=== PATIENT | female | born 1960 | race Caucasian/White ===

== ENCOUNTER → 2018-11-20 | Outpatient (CLI) | payer BC ==
[~2018-11-20] MED LIST: BIRTH CONTROL; CLARITIN 1010 MG/TAB PO; ESTROGEN; PREDNISONE20 MG PO; PROGESTERON; ZOLOFT 100MG100 MG PO; ZOLOFT25 MG PO
== END ==
LOC: MC.RAD 07:20
DX: Z12.31 Encounter for screening mammogram for malignant neoplasm of breast (principal); Z98.82 Breast implant status

== ENCOUNTER 2020-03-21 13:29 | Emergency (ER) | payer BC ==
[~2020-03-21] VITALS: Ht 160 cm; Wt 49.5 kg
[2020-03-21 13:35] VITALS: TEMP 98.1
[2020-03-21] MEDS ORDERED: WELLBUTRIN SR100 M1 PO (13:39)
[2020-03-21 14:03] LABS: BASO % 0.3 % (0.0-2.0); EOS # 0.1 (0.0-0.7); EOS % 0.8 % (0-4.0); GRAN # 8.3 (1.4-6.5); GRAN % 83.9 % (42.2-75.2); HEMATOCRIT 41.6 % (37.0-47.0); HEMOGLOBIN 13.9 g/dl (12.5-16.0); LYMPH # 0.9 (1.2-3.4); LYMPH % 8.9 % (20.0-51.0); MEAN CELL VOLUME 99 fl (80.0-100.0); MEAN CORPUSCULAR HEMOGLOBIN 33 pg (27.0-31.0); MEAN CORPUSCULAR HGB CONC 33 g/dl (33.0-37.0); MEAN PLATELET VOLUME 8.9 fl (7.4-10.4); MONO # 0.6 (0.1-0.6); MONO % 5.8 % (1.7-9.3); PLATELET COUNT 371 K/mm3 (130-400); RED BLOOD COUNT 4.19 M/mm3 (4.10-5.30)
[2020-03-21 14:10] LABS: ALANINE AMINOTRANSFERASE 17 U/L (4-34); ALBUMIN 4.7 gm/dL (3.5-5.0); ALKALINE PHOSPHATASE 81 U/L (50-136); ANION GAP 8 mmol/L (7-16); AST,SGOT 33 U/L (15-37); BILIRUBIN,TOTAL 0.7 mg/dL (0.0-1.0); BLOOD UREA NITROGEN 14 mg/dL (7-17); CARBON DIOXIDE 27 mmol/L (22-30); CHLORIDE 97 mmol/L (98-107); CREATININE, serum 0.73 (0.52-1.25); GLUCOSE 94 mg/dL (74-106); POTASSIUM 4.1 mmol/L (3.4-5.0); PROTHROMBIN TIME 10.8 SECONDS (9.7-12.8); SODIUM 133 mmol/L (137-145); TOTAL PROTEIN 7.7 gm/dL (6.4-8.2)
[2020-03-21 14:42] LABS: TROPONIN-I < 0.012 ng/mL (0.000-0.035)
[2020-03-21] MEDS ORDERED: ATIVAN 0.50.5 MG/TAB PO (15:31)
[2020-03-21 16:04] VITALS: BP 131/84; PULSE 89
== END 2020-03-21 16:04 | disposition home or self-care (01) ==
LOC: COL.ER 13:29
PROVIDERS: Emergency Medicine
DX: R29.810 Facial weakness (principal); F32.9 Major depressive disorder, single episode, unspecified; F41.9 Anxiety disorder, unspecified; Z90.710 Acquired absence of both cervix and uterus
CPT/HCPCS: J2060

== ENCOUNTER → 2020-03-29 | Outpatient (CLI) | payer BC ==
[~2020-03-29] VITALS: Ht 160 cm; Wt 50.6 kg
[2020-03-29] VITALS (7 sets, daily range): BP systolic 119–151; BP diastolic 73–99; PULSE 75–92
[~2020-03-29] MED LIST changes: +ATIVAN 0.50.5 MG/TAB PO; +MOBIC 7.5MG7.5 MG PO; +TYLENOL 8 HR PO; +ULTRAM 50MG TAB50 MG PO; +WELLBUTRIN 100100 MG PO; +WELLBUTRIN SR100 M1 PO; +XANAX .25M0.25 MG/TA PO; +ZANAFLEX CAPSULE2 MG PO
[2020-03-29 11:10] LABS: GLUCOSE,CSF 50 mg/dL (40-70); TOTAL PROTEIN,CSF 35 mg/dL (15-45)
[2020-03-29 12:22] LABS: CSF APPEARANCE CLEAR; CSF COLOR COLORLESS; CSF MONONUCLEAR 100 % (70-100); CSF POLYMORPHONUCLEAR 0 % (0-6); CSF RBC 35 /mm3 (0-0)
--- NOTE | 2020-03-29 12:45 | NUR ---
Pt up to bathroom to void. Pt denies complaints at this time. Pt out to car per wheelchair. Pt up and into car without difficulty.
[2020-04-01 16:54] LABS: IGG/ALBUMIN SERUM 0.18 (<=0.40)
[2020-04-01 17:15] LABS: ALBUMIN CSF 20.5 mg/dL (<=27.0)
[2020-04-01 17:46] LABS: CSF IGG/ALBUMIN 0.09 (<=0.21); CSF SYNTHESIS RATE 0.2 mg/24 h (<=12); CSF,IGG 1.9 mg/dL (<=8.1); CSF-IGG INDEX 0.5 (<=0.85)
== END ==
LOC: COL.RAD 09:00
PROVIDERS: Psychiatry & Neurology Neurology
DX: G37.9 Demyelinating disease of central nervous system, unspecified (principal)

== ENCOUNTER → 2020-12-27 | Outpatient (CLI) | payer BC | LOC: MC.RAD 11:44 | DX: Z12.31 Encounter for screening mammogram for malignant neoplasm of breast (principal); Z98.82 Breast implant status ==

== ENCOUNTER → 2022-02-14 | Outpatient (CLI) | payer BC | LOC: MHCPAIN 10:38 | DX: M47.817 Spondylosis without myelopathy or radiculopathy, lumbosacral region (principal); M53.3 Sacrococcygeal disorders, not elsewhere classified; M54.16 Radiculopathy, lumbar region; G89.29 Other chronic pain | CPT/HCPCS: G0463 ==

== ENCOUNTER → 2022-03-15 | Outpatient (CLI) | payer BC | LOC: MHCPAIN 08:26 | DX: M47.817 Spondylosis without myelopathy or radiculopathy, lumbosacral region (principal); M53.3 Sacrococcygeal disorders, not elsewhere classified; M54.17 Radiculopathy, lumbosacral region | CPT/HCPCS: G0463; J1100; Q9967 ==

== ENCOUNTER → 2024-07-24 | Outpatient (CLI) | payer BC | LOC: MC.RAD 06:07 | DX: Z12.31 Encounter for screening mammogram for malignant neoplasm of breast (principal) ==